=== PATIENT | female | born 1940 | race Caucasian/White ===

== ENCOUNTER → 2018-08-23 | Outpatient (CLI) | payer MEDICARE, BC ==
[~2018-08-23] MED LIST: ALEN70 PO; ASCO500 PO; CALC1.25T PO; CHOL10002 PO; GLIM4 PO; LEVSOD50 PO; LISI5 PO; MULVITMIND PO; OMEP20ER PO; OXYC5 PO; PYRI100; RALO60 PO; SITA100T2 PO; SOLI5 PO; TOCO400 PO; Vitamin B Comple1 EA PO
== END | disposition home or self-care (01) ==
LOC: LAB SHORT 15:08 → PLD 15:08
DX: B35.1 Tinea unguium (principal); L60.2 Onychogryphosis
CPT/HCPCS: 88305; 88312

== ENCOUNTER → 2018-11-01 | Outpatient (CLI) | payer MEDICARE, BC | END | disposition home or self-care (01) | LOC: PLD 13:35 → LAB SHORT 13:35 | DX: L81.4 Other melanin hyperpigmentation (principal) | CPT/HCPCS: 88305 ==

== ENCOUNTER → 2021-03-04 | Outpatient (CLI) | payer MEDICARE, BC ==
[~2021-03-04] MED LIST changes: +ATORVASTATIN CA20 MG PO; +GLUCOPHAGE1000 M1 PO; +LEVSOD75 PO; +METFORMIN HCL1000 M3 PO; +SERT25 PO; -SOLI5 PO; +Vesicare10 MG PO
== END | disposition home or self-care (01) ==
LOC: LAB SHORT 14:55 → LAB 14:55
DX: D18.01 Hemangioma of skin and subcutaneous tissue (principal); L57.8 Other skin changes due to chronic exposure to nonionizing radiation
CPT/HCPCS: 88305

== ENCOUNTER 2021-04-01 07:24 | Day surgery (SDC) | payer MEDICARE, BC ==
[~2021-04-01] VITALS: Ht 157.5 cm; Wt 55.8 kg
--- NOTE | 2021-04-01 13:28 | NUR ---
PT IV DC'D INTACT, DAUGHTER CALLED AND WILL ARRIVE SHORTLY, PT WILL DC BY YVONNE R GROIN SITE STABLE, PT DRESSED AND INSTRUCTIONS GIVEN
--- NOTE | 2021-04-01 14:28 | NUR ---
PT TERESA'Nguyen W DAUGHTER DRIVING PT HOME
== END 2021-04-01 13:38 | disposition home or self-care (01) ==
LOC: MHTC 07:24
DX: I21.4 Non-ST elevation (NSTEMI) myocardial infarction (principal); I25.119 Atherosclerotic heart disease of native coronary artery with unspecified angina pectoris; Z95.1 Presence of aortocoronary bypass graft; I10 Essential (primary) hypertension; E11.9 Type 2 diabetes mellitus without complications; Z88.5 Allergy status to narcotic agent
CPT/HCPCS: 93455; 99152; 99153; C1760; C1769; C1894; J1644; J2250; J3010; J7030; J7050; Q9967

== ENCOUNTER 2024-05-31 12:31 | Day surgery (SDC) | payer MEDICARE, BC ==
[~2024-05-31] VITALS: Ht 157.5 cm; Wt 51.1 kg
[~2024-05-31 12:31] MED LIST changes: +Aspir 8181 MG PO; +Balanced Salt Epinephrine Irrigation Solution 500 mL IR SCH; +JARDIANCE25 MG PO; +Lidocaine HCl/Pf 1% 5 ML VIAL XX SCH; +Moxifloxacin HCL 0.5 MG/0.1 ML 0.4MLSYR LEFTEYE SCH; +NS 500 ML IV ONE; +PHENYLEPHRINE\\TROPICAMIDE\\TETRACAINE OPHTHALMIC DILATING SOLN LEFTEYE PRN; +Povidone-Iodine 450 DROP/30 ML Solution LEFTEYE SCH; +Povidone-Iodine 450 DROP/30 ML Solution ONE; +Tetracaine HCl/Pf 0.5% Opth Soln 4 ml ONE
[2024-05-31] MEDS ORDERED: OMEP20ER PO (13:20)
[2024-05-31] MEDS ORDERED: MYRBETRIQ25 MG PO (13:20)
[2024-05-31] MEDS ORDERED: VITAMIN B COMP1 EAC1 (13:23)
[2024-05-31] MEDS ORDERED: VITAMIN E (13:23)
[2024-05-31] MEDS ORDERED: VITAMIN D (13:23)
[2024-05-31] MEDS ORDERED: Midazolam HCl 1MG / ML 2ML Vial ONE (13:31)
[2024-05-31] MEDS ORDERED: NS 500 ML IV ONE ×2 (13:42→13:46)
--- NOTE | 2024-05-31 13:57 | NUR ---
[facility] PATIENT REPORTED SHE TESTED POSITIVE FOR COVID ON May OF THIS YEAR, PATIENT REPORTED SHE TESTED NEGATIVE ON May. PATIENT REPORTED MOST OF HER SYMPTOMS HAVE RESOLVED, NO RECENT FEVERS, JUST A LITTLE DRAINAGE NOW, NO MORE COUGH. 1317: UPDATED MIKALA TUCKER AND DANDRE CONCERNING RECENT COVID, OK TO PROCEED
[2024-05-31 14:17] VITALS: BP 131/65
== END 2024-05-31 14:30 | disposition home or self-care (01) ==
LOC: ORSCSDS 12:31
PROVIDERS: Student in an Organized Health Care Education/Training Program
PROC: 08RK3JZ Replacement of Left Lens with Synthetic Substitute, Percutaneous Approach (ICD-10-PCS; principal; 2024-05-31 14:00)
DX: E11.36 Type 2 diabetes mellitus with diabetic cataract (principal); H25.813 Combined forms of age-related cataract, bilateral; I10 Essential (primary) hypertension; K21.9 Gastro-esophageal reflux disease without esophagitis; I25.10 Atherosclerotic heart disease of native coronary artery without angina pectoris; E78.5 Hyperlipidemia, unspecified; I25.2 Old myocardial infarction; Z95.1 Presence of aortocoronary bypass graft; Z87.891 Personal history of nicotine dependence; Z79.899 Other long term (current) drug therapy
CPT/HCPCS: 82947; J2250; J7040; V2632

== ENCOUNTER 2024-06-06 08:07 | Day surgery (SDC) | payer MEDICARE, BC ==
[~2024-06-06] VITALS: Ht 157.5 cm; Wt 52.0 kg
[~2024-06-06 08:07] MED LIST changes: +MYRBETRIQ25 MG PO; -Moxifloxacin HCL 0.5 MG/0.1 ML 0.4MLSYR LEFTEYE SCH; +Moxifloxacin HCL 0.5 MG/0.1 ML 0.4MLSYR RIGHTEYE SCH; -PHENYLEPHRINE\\TROPICAMIDE\\TETRACAINE OPHTHALMIC DILATING SOLN LEFTEYE PRN; +PHENYLEPHRINE\\TROPICAMIDE\\TETRACAINE OPHTHALMIC DILATING SOLN RIGHTEYE PRN; -Povidone-Iodine 450 DROP/30 ML Solution LEFTEYE SCH; +Povidone-Iodine 450 DROP/30 ML Solution RIGHTEYE SCH; +VITAMIN B COMP1 EAC1; +VITAMIN D; +VITAMIN E
[2024-06-06] MEDS ORDERED: MULTI-VITAMIN1 EAC2 PO (08:22)
[2024-06-06] MEDS ORDERED: Midazolam HCl 1MG / ML 2ML Vial ONE (08:58)
[2024-06-06 09:45] VITALS: BP 111/59
== END 2024-06-06 09:57 | disposition home or self-care (01) ==
LOC: ORSCSDS 08:07
PROVIDERS: Student in an Organized Health Care Education/Training Program
PROC: 08RJ3JZ Replacement of Right Lens with Synthetic Substitute, Percutaneous Approach (ICD-10-PCS; principal; 2024-06-06 09:30)
DX: E11.36 Type 2 diabetes mellitus with diabetic cataract (principal); H25.811 Combined forms of age-related cataract, right eye; Z96.1 Presence of intraocular lens; I25.10 Atherosclerotic heart disease of native coronary artery without angina pectoris; E03.9 Hypothyroidism, unspecified; I10 Essential (primary) hypertension; I25.2 Old myocardial infarction; Z79.82 Long term (current) use of aspirin; Z79.84 Long term (current) use of oral hypoglycemic drugs; Z79.899 Other long term (current) drug therapy; Z87.891 Personal history of nicotine dependence
CPT/HCPCS: 82947; J2250; J7040; V2632

== ENCOUNTER 2025-06-25 23:05 | Inpatient (IN) | payer MEDICARE, BC ==
[~2025-06-25] VITALS: Ht 157.5 cm; Wt 49.7 kg
[~2025-06-25 23:05] MED LIST changes: -Balanced Salt Epinephrine Irrigation Solution 500 mL IR SCH; +HYDR1TAB94 PO; -Lidocaine HCl/Pf 1% 5 ML VIAL XX SCH; +MULTI-VITAMIN1 EAC2 PO; -Moxifloxacin HCL 0.5 MG/0.1 ML 0.4MLSYR RIGHTEYE SCH; -NS 500 ML IV ONE; -PHENYLEPHRINE\\TROPICAMIDE\\TETRACAINE OPHTHALMIC DILATING SOLN RIGHTEYE PRN; -Povidone-Iodine 450 DROP/30 ML Solution ONE; -Povidone-Iodine 450 DROP/30 ML Solution RIGHTEYE SCH; -Tetracaine HCl/Pf 0.5% Opth Soln 4 ml ONE; +VITAMIN D PO
[2025-06-25 23:31] LABS: BASOPHILS ABSOLUTE AUTO 0.06 K/mm3 (0.00-0.23); BASOPHILS PERCENT AUTO 0 % (0-2); EOSINOPHILS ABSOLUTE AUTO 0.22 K/mm3 (0.00-0.68); EOSINOPHILS PERCENT AUTO 2 % (0-6); Hematocrit 36.2 % (33.0-51.0); Hemoglobin 11.6 g/dL (11.5-16.0); IMMATURE GRAN ABSOLUTE AUTO 0.06 K/mm3 (0.00-0.10); IMMATURE GRAN PERCENT AUTO 0 % (0-1); LYMPHOCYTES ABSOLUTE AUTO 1.25 K/mm3 (0.84-5.20); LYMPHOCYTES PERCENT AUTO 8 % (21-46); MONOCYTES ABSOLUTE AUTO 0.79 K/mm3 (0.16-1.47); MONOCYTES PERCENT AUTO 5 % (4-13); Mean Corpuscular HGB Conc 32.0 g/dL (31.5-36.5); Mean Corpuscular Volume 91 fL (80-100); NEUTROPHILS ABSOLUTE AUTO 12.61 K/mm3 (1.96-9.15); NEUTROPHILS PERCENT AUTO 84 % (41-73); NRBC ABSOLUTE 0.00 K/mm3 (0.00-0.02); NRBC Auto 0.0 /100 WBC (0.0-0.2); Platelet Count 249 K/mm3 (150-400); RDW Coefficient Variation 16.0 % (11.7-14.2); RDW Standard Deviation 53.8 fL (35.1-46.3)
[2025-06-25 23:45] LABS: Alanine Aminotransfer (ALT/SGP 24.0 U/L (12-78); Albumin, Blood 3.6 g/dL (3.4-5.0); Albumin/Globulin Ratio 1.1 (0.8-1.8); Anion Gap 9.0 mmol/L (3-11); Aspartate Aminotrans (AST/SGOT 29.0 U/L (12-37); Bilirubin, Total 0.4 mg/dL (0.1-1.0); Blood Urea Nitrogen 21.0 mg/dL (8-24); CO2, Blood 25.0 mmol/L (21-32); Calcium, Blood 8.6 mg/dL (8.5-10.1); Chloride, Blood 107.0 mmol/L (98-108); Creatinine, Blood 0.66 mg/dL (0.40-1.00); Globulin, Blood 3.2 g/dL (2.2-4.0); Glucose, Blood 162.0 mg/dL (70-99); Potassium, Blood 3.9 mmol/L (3.5-5.5); Sodium, Blood 137.0 mmol/L (136-145); Total Protein, Blood 6.8 g/dL (6.4-8.2)
[2025-06-26] VITALS (7 sets, daily range): BP systolic 96–112; BP diastolic 54–96
[2025-06-26] MEDS ORDERED: Ondansetron HCl 2 MG / ML 2ML Vial IV PRN (01:20)
[2025-06-26] MEDS ORDERED: FLU VACC TS2025(65UP)/MF59C/PF 45 MCG/0.5 ML SYRINGE IM SCH (01:20)
[2025-06-26] MEDS ORDERED: NS 1,000 ML IV SCH (01:20)
[2025-06-26 01:23] LABS: BASOPHILS ABSOLUTE AUTO 0.04 K/mm3 (0.00-0.23); BASOPHILS PERCENT AUTO 0 % (0-2); EOSINOPHILS ABSOLUTE AUTO 0.11 K/mm3 (0.00-0.68); EOSINOPHILS PERCENT AUTO 1 % (0-6); Hematocrit 36.2 % (33.0-51.0); Hemoglobin 11.8 g/dL (11.5-16.0); IMMATURE GRAN ABSOLUTE AUTO 0.05 K/mm3 (0.00-0.10); IMMATURE GRAN PERCENT AUTO 0 % (0-1); LYMPHOCYTES ABSOLUTE AUTO 0.74 K/mm3 (0.84-5.20); LYMPHOCYTES PERCENT AUTO 6 % (21-46); MONOCYTES ABSOLUTE AUTO 0.59 K/mm3 (0.16-1.47); MONOCYTES PERCENT AUTO 5 % (4-13); Mean Corpuscular HGB Conc 32.6 g/dL (31.5-36.5); Mean Corpuscular Volume 91 fL (80-100); NEUTROPHILS ABSOLUTE AUTO 11.36 K/mm3 (1.96-9.15); NEUTROPHILS PERCENT AUTO 88 % (41-73); NRBC ABSOLUTE 0.00 K/mm3 (0.00-0.02); NRBC Auto 0.0 /100 WBC (0.0-0.2); Platelet Count 235 K/mm3 (150-400); RDW Coefficient Variation 15.9 % (11.7-14.2); RDW Standard Deviation 53.4 fL (35.1-46.3)
[2025-06-26] MEDS ORDERED: FentaNYL Citrate 50 MCG/ML 2 ML Injection IV PRN (01:25)
[2025-06-26 01:41] LABS: Alanine Aminotransfer (ALT/SGP 23.0 U/L (12-78); Albumin, Blood 3.5 g/dL (3.4-5.0); Albumin/Globulin Ratio 1.1 (0.8-1.8); Anion Gap 11.0 mmol/L (3-11); Aspartate Aminotrans (AST/SGOT 23.0 U/L (12-37); Bilirubin, Total 0.4 mg/dL (0.1-1.0); Blood Urea Nitrogen 21.0 mg/dL (8-24); CO2, Blood 24.0 mmol/L (21-32); Calcium, Blood 8.1 mg/dL (8.5-10.1); Chloride, Blood 107.0 mmol/L (98-108); Creatinine, Blood 0.63 mg/dL (0.40-1.00); Globulin, Blood 3.1 g/dL (2.2-4.0); Glucose, Blood 173.0 mg/dL (70-99); Potassium, Blood 4.1 mmol/L (3.5-5.5); Sodium, Blood 138.0 mmol/L (136-145); Total Protein, Blood 6.6 g/dL (6.4-8.2)
[2025-06-26 01:46] LABS: Anti-Xa UFH, PHA Monitoring <0.10 IU/mL; Prothrombin Time Results 10.7 Sec (9.7-11.5)
[2025-06-26] MEDS ORDERED: Dose Adjust by Pharmacy XX STA ×2 (01:49→09:06)
[2025-06-26] MEDS ORDERED: Heparin Sodium,Porcine/0.5 NS 500 ML IV SCH (01:50)
[2025-06-26] MEDS ORDERED: Heparin Sodium 5000 Units/ML 1ML MDV IV ONE (01:50)
--- NOTE | 2025-06-26 04:18 | NUR ---
ADMIT NOTE REPORT RECIVED BY THIS RN FROM DIRECTOR OF SLOT OPERATIONS LISA @ [employer] 0219 PT ARRIVED TO ROOM PCU 06 @ APPROX 0245
--- NOTE | 2025-06-26 06:30 | NUR ---
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 CONTINUOUS SPO2, SPO2 GREATER THAN 92% ON RA, PT DENIES SOB AT THIS TIME. CONTINUOUS TELE MONITORING, SINUS 90 S, BP STABLE WITH MAP GREATER THAN 65, CAP REFILL WNL, PULSES PRESENT T/O, PT REPORTS CHEST PAIN BUT DENIES IT BEING WORSE OR DIFFERENT THAN FROM WHEN SHE CAME IN, HEPARIN INFUSING PER ORDERS. BOWEL TONES PRESENT IN ALL 4Q, PT DENIES FEELINGS OF CONSTIPATION. SBA TO BSC, URINE YELLOW IN COLOR. BED LOWEST POSITION, CALL LIGHT IN REACH, AWAITING TO GIVE REPORT TO ONCOMING RN.
[2025-06-26] MEDS ORDERED: Insulin Human Lispro 100 Units/ML 3ML Syringe SC SCH (07:30)
--- NOTE | 2025-06-26 18:36 | NUR ---
SHIFT SUMMARY PATIENT AOX4 ABLE TO MAKE NEEDS KNOWN VERY [place]. DENIES SOB DOES HAVE MILD CHEST PAIN 08/18 SHE STATES SHE DOESNT NEED PAIN MEDS. SHE IS ON HEP GTT. SHE IS UP TO BSC TO VOID AND TOLERATING HER MEALS. SHE STATES SHE HAS A CHRONIC CUT/LESION ON HER ANUS/VAGINA THAT BLEEDS WHEN SHE WIPES.
[2025-06-26] MEDS ORDERED: Clarify Drug Order XX ONE (22:00)
--- NOTE | 2025-06-26 23:40 | NUR ---
SHIFT SUMMARY PT A&O X4, ABLE TO MAKE NEEDS KNOWN, MOVING ALL EXTREMITIES WITH PURPOSE, REPOSITIONING SELF IN BED, HARD OF HEARING/BILATERAL HEARING BASELINE, CALLS APPROPRIATELY. CONTINUOUS SPO2, SPO2 GREATER THAN 92% ON RA, PT DENIES SOB AT THIS TIME. CONTINUOUS TELE MONITORING, SINUS 90 S, BP STABLE WITH MAP GREATER THAN 65, CAP REFILL WNL, PULSES PRESENT T/O, PT REPORTS CHEST PAIN BUT DENIES IT BEING WORSE OR DIFFERENT STATING ITS MOSTLY IN HER BACK/ DENIED NEED FOR PAIN MEDICATIONS OR NONPHARMALOGICAL THERAPIES, HEPARIN INFUSING PER ORDERS. BOWEL TONES PRESENT IN ALL 4Q, PT DENIES FEELINGS OF CONSTIPATION. SBA TO BSC, URINE YELLOW IN COLOR.
[2025-06-27 04:04] VITALS: BP 110/75
[2025-06-27 04:21] LABS: BASOPHILS ABSOLUTE AUTO 0.06 K/mm3 (0.00-0.23); BASOPHILS PERCENT AUTO 1 % (0-2); EOSINOPHILS ABSOLUTE AUTO 0.38 K/mm3 (0.00-0.68); EOSINOPHILS PERCENT AUTO 5 % (0-6); Hematocrit 40.0 % (33.0-51.0); Hemoglobin 12.9 g/dL (11.5-16.0); IMMATURE GRAN ABSOLUTE AUTO 0.02 K/mm3 (0.00-0.10); IMMATURE GRAN PERCENT AUTO 0 % (0-1); LYMPHOCYTES ABSOLUTE AUTO 1.82 K/mm3 (0.84-5.20); LYMPHOCYTES PERCENT AUTO 24 % (21-46); MONOCYTES ABSOLUTE AUTO 0.49 K/mm3 (0.16-1.47); MONOCYTES PERCENT AUTO 6 % (4-13); Mean Corpuscular HGB Conc 32.3 g/dL (31.5-36.5); Mean Corpuscular Volume 90 fL (80-100); NEUTROPHILS ABSOLUTE AUTO 4.97 K/mm3 (1.96-9.15); NEUTROPHILS PERCENT AUTO 64 % (41-73); NRBC ABSOLUTE 0.00 K/mm3 (0.00-0.02); NRBC Auto 0.0 /100 WBC (0.0-0.2); Platelet Count 237 K/mm3 (150-400); RDW Coefficient Variation 16.3 % (11.7-14.2); RDW Standard Deviation 54.1 fL (35.1-46.3)
[2025-06-27] MEDS ORDERED: Clarify Drug Order XX ONE (05:40)
--- NOTE | 2025-06-27 06:13 | NUR ---
SHIFT SUMMARY PT A&O X4, ABLE TO MAKE NEEDS KNOWN, MOVING ALL EXTREMITIES WITH PURPOSE, REPOSITIONING SELF IN BED, HARD OF HEARING/BILATERAL HEARING BASELINE, CALLS APPROPRIATELY. CONTINUOUS SPO2, SPO2 GREATER THAN 92% ON RA, PT DENIES SOB AT THIS TIME. CONTINUOUS TELE MONITORING, SINUS 90 S, BP STABLE WITH MAP GREATER THAN 65, CAP REFILL WNL, PULSES PRESENT T/O, PT REPORTS CHEST PAIN BUT DENIES IT BEING WORSE OR DIFFERENT STATING ITS MOSTLY IN HER BACK/ DENIED NEED FOR PAIN MEDICATIONS OR NONPHARMALOGICAL THERAPIES, HEPARIN INFUSING PER ORDERS. BOWEL TONES PRESENT IN ALL 4Q, PT DENIES FEELINGS OF CONSTIPATION. SBA TO BSC, URINE YELLOW IN COLOR. BED LOWEST POSITION, CALL LIGHT IN REACH, AWAITING TO GIVE REPORT TO ONCOMING RN.
[2025-06-27 07:07] VITALS: BP 117/60
[2025-06-27 12:54] VITALS: BP 99/52
[2025-06-27 15:44] VITALS: BP 98/56
--- NOTE | 2025-06-27 18:08 | NUR ---
SHIFT SUMMARY; ASSUMED CARE AT 0700. A/A/OX4. AMBULATES IN ROOM WITH SBA. MOVES SELF ON BED NEEDED. HEPARIN GTT INFUSING AT 14 UNITS/KG. DENIES CP OR SOB DURING SHIFT. VSS, NO ACUTE MEDICAL CHANGES. SHOWER TODAY WITH BED CHANGE. WILL CONTINUE TO MONITOR AND TREAT UNTIL REPORT GIVEN TO NOC SHIFT RN TO ASSUME CARE.
[2025-06-27 20:09] VITALS: BP 116/58
[2025-06-27 22:59] VITALS: BP 116/58
[2025-06-28] VITALS (7 sets, daily range): BP systolic 103–127; BP diastolic 56–65
--- NOTE | 2025-06-28 02:51 | NUR ---
SHIFT SUMMARY:: PT IS A&OX4, PLEASANT AND COOPERATIVE WITH CARE. VSS ON RA SPO2 > 95%. SR 90 S. PT C/O OF PAIN TO HER LEFT FOOT. TOP OF LEFT FOOT IS SLIGHTLY BRUISED AND SWOLLEN WITH SOME SWELLING TO LEFT ANKLE. SHE DOES HAVE GOOD PEDAL PULSES. MD GAVE ORDERS FOR TYLENOL AND ASPERCREAM. SHE REMAINED WITH 9/10 PAIN. FENTANYL WAS GIVEN WITH SOME RELIEF. XRAY WAS DONE TO LEFT FOOT AWAITING RESULTS. SHE ALSO C/O NAUSEA AND INDIGESTION. ZOFRAN WAS GIVEN WITH GOOD RELIEF. TOLERATING A CC DIET. TAKES MEDS WHOLE WITH WATER. BLOOD SUGARS DONE AC AND HS WAS 236. REMAINS ON HEPARIN DRIP AT 14U/KG/HR, 14.3 ML/HR. GETS UP TO COMMODE OR BATHROOM WITH 1 PERSON SBA AND WALKER. BED IN LOWEST POSITION, CALL LIGHT WITHIN REACH. CALLS APPROPRIATELY AND IS ABLE TO ADVOCATE NEEDS EFFECTIVELY.
[2025-06-28 04:49] LABS: BASOPHILS ABSOLUTE AUTO 0.05 K/mm3 (0.00-0.23); BASOPHILS PERCENT AUTO 1 % (0-2); EOSINOPHILS ABSOLUTE AUTO 0.29 K/mm3 (0.00-0.68); EOSINOPHILS PERCENT AUTO 3 % (0-6); Hematocrit 37.3 % (33.0-51.0); Hemoglobin 12.3 g/dL (11.5-16.0); IMMATURE GRAN ABSOLUTE AUTO 0.01 K/mm3 (0.00-0.10); IMMATURE GRAN PERCENT AUTO 0 % (0-1); LYMPHOCYTES ABSOLUTE AUTO 1.67 K/mm3 (0.84-5.20); LYMPHOCYTES PERCENT AUTO 18 % (21-46); MONOCYTES ABSOLUTE AUTO 0.87 K/mm3 (0.16-1.47); MONOCYTES PERCENT AUTO 9 % (4-13); Mean Corpuscular HGB Conc 33.0 g/dL (31.5-36.5); Mean Corpuscular Volume 90 fL (80-100); NEUTROPHILS ABSOLUTE AUTO 6.44 K/mm3 (1.96-9.15); NEUTROPHILS PERCENT AUTO 69 % (41-73); NRBC ABSOLUTE 0.00 K/mm3 (0.00-0.02); NRBC Auto 0.0 /100 WBC (0.0-0.2); Platelet Count 210 K/mm3 (150-400); RDW Coefficient Variation 16.0 % (11.7-14.2); RDW Standard Deviation 52.2 fL (35.1-46.3)
[2025-06-28 05:12] LABS: Alanine Aminotransfer (ALT/SGP 26.0 U/L (12-78); Albumin, Blood 3.3 g/dL (3.4-5.0); Albumin/Globulin Ratio 1.0 (0.8-1.8); Anion Gap 10.0 mmol/L (3-11); Aspartate Aminotrans (AST/SGOT 28.0 U/L (12-37); Bilirubin, Total 0.4 mg/dL (0.1-1.0); Blood Urea Nitrogen 15.0 mg/dL (8-24); CO2, Blood 24.0 mmol/L (21-32); Calcium, Blood 8.4 mg/dL (8.5-10.1); Chloride, Blood 109.0 mmol/L (98-108); Creatinine, Blood 0.83 mg/dL (0.40-1.00); Globulin, Blood 3.4 g/dL (2.2-4.0); Glucose, Blood 175.0 mg/dL (70-99); Potassium, Blood 3.8 mmol/L (3.5-5.5); Sodium, Blood 139.0 mmol/L (136-145); Total Protein, Blood 6.7 g/dL (6.4-8.2)
[2025-06-28] MEDS ORDERED: Dose Adjust by Pharmacy XX STA (05:29)
[2025-06-28] MEDS ORDERED: PANT20 PO (08:42)
[2025-06-28] MEDS ORDERED: CLOP75 PO (08:43)
[2025-06-28] MEDS ORDERED: METO25ER PO (08:44)
[2025-06-28] MEDS ORDERED: Isosorbide Mononitrate 30 MG TABCR PO SCH (09:00)
[2025-06-28] MEDS ORDERED: Polyethylene Glycol 3350 17 gm PO PRN (09:35)
--- NOTE | 2025-06-28 09:39 | NUR ---
AM NOTE PT ALERT, ORIENTED X4; CALM AND COOPERATIVE WITH CARE. PT RESTING IN BED. UP WITH 1 PERSON ASSIST WALKER AND PIVOT TRANSFER. PT REPORTING PAIN TO LEFT DORSAL FOOT, SLIGHT WELLING NOTED, DARKING/BRUISING, UNCLEARN OF WHEN STARTED OR HOW IT WAS INJURED, AWAITING RESULTS OF XRAY FROM PREVIOUS SHIFT. PT UNABLE TO PLACE WEIGHT ON FOOT WITHOUT INCREASED PAIN. REPORTS 1-2/10 CHEST PAIN, DR FREED AT BEDSIDE, NEW ORDERS FOR IMDUR 30MG. PT DENIES SOB, NAUSEA, DIZZINESS AND NUMB/TINGLING. TELE SINUS 80'S, BP WNL, NO OTHER EDEMA NOTED. SPO2 >90% ON RA, BREATHING EVEN AND UNLAOBRED, LS CLEAR. ABD SOFT, NONTENDER, +BT, PASSING FLATULENCE; PT REPORTS NO BM SINCE WEDNESDAY, NOTIFIED DR FREED, NEW ORDER FOR MIRALAX. D/C HEPARIN THIS AM PER DR FREED ORDERS. OTHER VSS. WILL CONTINUE TO MONITOR.
[2025-06-28] MEDS ORDERED: Enoxaparin 40 MG/0.4 ML SYR SC SCH (14:00)
--- NOTE | 2025-06-28 17:30 | NUR ---
SHIFT SUMMARY PT LEFT FOOT IMPROVING T/O SHIFT, PT STILL REPORTSING PAIN WHEN AMBULATING, BUT IS ABLE TO MAKE IT TO THE BATHROOM WITH 1 PERSON ASSIST AND WALKER AND IS ABLE TO PUT WEIGHT ON IT. NO OTHER ACUTE CHANGES NOTED T/O SHIFT. VSS. CALL LIGHT WITHIN REACH.
--- NOTE | 2025-06-29 02:45 | NUR ---
SHIFT SUMMARY:: PT IS A&OX4, PLEASANT AND COOPERATIVE WITH CARE. SHES VERY [place]. VSS ON RA SPO2 > 95%. SR 90 S. PT C/O OF PAIN TO HER LEFT FOOT BUT STATED ITS MUCH BETTER TONITE THEN YESTERDAY. TYLENOL WAS GIVEN WITH GOOD RELIEF. REMAINS WITH SOME BRUISING AND SWELLING TO AREA. ICE PACK WAS APPLIED.NO C/O CHEST PAIN OR PRESSURE THIS SHIFT. BP WAS STABLE. TOLERATING A CC DIET. TAKES MEDS WHOLE WITH WATER. BLOOD SUGARS DONE AC AND HS WAS 303. HAS BEEN AMBULATING TO BATHROOM WITH WALKER AND 1 PERSON SBA. . BED IN LOWEST POSITION, CALL LIGHT WITHIN REACH. CALLS APPROPRIATELY AND IS ABLE TO ADVOCATE NEEDS EFFECTIVELY. SHE STATED TONITE THAT SHES THINKING THAT SHE WILL GO TO A SNF ON DISCHARGE.
[2025-06-29 04:20] VITALS: BP 116/59
[2025-06-29 07:45] VITALS: BP 128/61
--- NOTE | 2025-06-29 09:39 | NUR ---
ASSUMPTION OF CARE: ASSUMED CARE OF PT AT APPROX 0720. PT A/O X4, ABLE TO MAKE NEEDS KNOWN. C/O L FOOT PAIN, AMBULATING PT MORE FREQUENTLY/ELEVATING EXTREMITY. SBA TO BATHROOM WITH FWW. ROOM AIR, SATS >95%. DENIES SOB. NSR 90s, DENIES CHEST PAIN/PRESSURE. ALL OTHER VITAL SIGNS STABLE. PT LYING IN BED, CALL WITHIN REACH.
[2025-06-29 10:51] VITALS: BP 106/53
[2025-06-29] MEDS ORDERED: Isosorbide Mono30 MG PO (13:39)
--- NOTE | 2025-06-29 14:21 | NUR ---
DISCHARGE: PT D/C FROM [facility] @2300 VIA WHEELCHAIR. DISCHARGE INSTRUCTIONS AND EDUCATION PROVIDED. ALL BELONGINGS WITH PT.
== END 2025-06-29 14:25 | disposition home health service (06) | DRG 282 ==
LOC: ER 23:05 → PCU 23:06
PROVIDERS: Emergency Medicine; Family Medicine; ADMIT Internal Medicine
DX: I21.4 Non-ST elevation (NSTEMI) myocardial infarction (principal); I10 Essential (primary) hypertension; E03.9 Hypothyroidism, unspecified; M79.672 Pain in left foot; I25.10 Atherosclerotic heart disease of native coronary artery without angina pectoris; I21.B Myocardial infarction with coronary microvascular dysfunction; E11.65 Type 2 diabetes mellitus with hyperglycemia; M81.0 Age-related osteoporosis without current pathological fracture; D72.829 Elevated white blood cell count, unspecified; M19.90 Unspecified osteoarthritis, unspecified site; Z95.1 Presence of aortocoronary bypass graft; Z88.5 Allergy status to narcotic agent; Z79.890 Hormone replacement therapy; Z79.84 Long term (current) use of oral hypoglycemic drugs; Z79.82 Long term (current) use of aspirin; Z79.83 Long term (current) use of bisphosphonates; I25.2 Old myocardial infarction; Z87.891 Personal history of nicotine dependence
CPT/HCPCS: 36415; 71046; 73620; 80053; 82947; 83690; 84484; 84550; 85025; 85520; 85610; 85730; 93005; 93010; 96374; 96376; 97116; 97140; 97161; 97530; 99285-25; A9270; G0378; J1644; J1650; J2405; J2470; J3010; J7030